=== PATIENT | male | born 1965 | race Caucasian/White ===

== ENCOUNTER 2019-05-17 17:17 | Outpatient (REF) | payer SELFPAY ==
[2019-05-17 22:26] LABS: COMMENT (LAB VIEW ONLY) 101.52 mg/dL; Microalb ug/mg Crea 3.3 ug/mg Cr
== END 2019-05-17 17:37 ==
LOC: NCHCN 17:17
PROVIDERS: PCP Internal Medicine; Visit Provider Internal Medicine
DX: E11.9 Type 2 diabetes mellitus without complications (principal)
CPT/HCPCS: 82043; 82570

== ENCOUNTER 2019-05-24 12:01 | Outpatient (REF) | payer SELFPAY ==
[2019-05-24 22:02] LABS: Calculated LDL 148 mg/dL; Cholesterol 204 mg/dL (<200); HDL Cholesterol 39 mg/dL (40-60); Triglyceride 88 mg/dL (<150)
== END 2019-05-24 12:21 ==
LOC: NCHCN 12:01
PROVIDERS: PCP Internal Medicine; Visit Provider Internal Medicine
DX: Z13.6 Encounter for screening for cardiovascular disorders (principal)
CPT/HCPCS: 80061

== ENCOUNTER 2019-09-06 11:52 | Outpatient (REF) | payer OTHER, SELFPAY ==
[2019-09-06 21:14] LABS: Calculated LDL 111 mg/dL (<100); Cholesterol 175 mg/dL (<200); HDL Cholesterol 48 mg/dL (40-60); Triglyceride 81 mg/dL (<150)
[2019-09-06 21:28] LABS: Hemoglobin A1C 6.5 % (3.8-5.6)
== END 2019-09-06 12:12 ==
LOC: NCHCN 11:52
PROVIDERS: PCP Internal Medicine; Visit Provider Internal Medicine
DX: E78.5 Hyperlipidemia, unspecified (principal); E11.9 Type 2 diabetes mellitus without complications
CPT/HCPCS: 80061; 83036

== ENCOUNTER 2019-12-17 12:42 | Outpatient (REF) | payer OTHER, SELFPAY ==
[2019-12-17 20:34] LABS: Bilirubin Negative (Negative); Blood Negative (Negative); Clarity Clear (Clear); Glucose Negative (Negative); Ketones Negative (Negative); Leukocyte Esterase Negative (Negative); Nitrite Negative (Negative); Specific Gravity 1.025 (1.005-1.025); Urobilinogen 0.2 EU/dL (Up TO 0.2); pH 5.5 (5-8)
[2019-12-17 20:59] LABS: TSH 1.51 uIU/mL (0.36-3.74)
[2019-12-20 10:04] LABS: PSA, Screening 0.9 ng/mL (0.0-3.5)
== END 2019-12-17 13:02 ==
LOC: NCHCN 12:42
PROVIDERS: PCP Internal Medicine; Visit Provider Internal Medicine
DX: R53.83 Other fatigue (principal); R35.0 Frequency of micturition; Z80.42 Family history of malignant neoplasm of prostate; Z12.5 Encounter for screening for malignant neoplasm of prostate
CPT/HCPCS: 84153; 81003; 84443

== ENCOUNTER 2021-02-28 22:05 | Outpatient (REF) | payer OTHER, SELFPAY ==
[2021-02-28 21:53] LABS: COMMENT (LAB VIEW ONLY) 204.58 mg/dL; Microalb ug/mg Crea 4.8 ug/mg Cr
[2021-02-28 21:58] LABS: BUN 19 mg/dL (7-18); CREATININE 1.1 mg/dL (0.70-1.30); Calcium 9.2 mg/dL (8.5-10.1); Calculated LDL 73 mg/dL (<100); Chloride 107 mmol/L (98-107); Cholesterol 138 mg/dL (<200); Glucose 93 mg/dL (74-106); HDL Cholesterol 51 mg/dL (40-60); Sodium 144 mmol/L (136-145); Triglyceride 71 mg/dL (<150)
[2021-02-28 22:05] LABS: Hemoglobin A1C 6.4 % (<5.7)
== END 2021-02-28 22:06 | disposition home or self-care (01) ==
LOC: NCHCN 22:05
PROVIDERS: PCP Internal Medicine; Visit Provider Internal Medicine
DX: E11.9 Type 2 diabetes mellitus without complications (principal); E78.5 Hyperlipidemia, unspecified
CPT/HCPCS: 80048; 80061; 82043; 82570; 83036

== ENCOUNTER 2021-12-26 16:21 | Outpatient (REF) | payer OTHER, SELFPAY ==
[2021-12-26 17:18] LABS: Anion Gap 10.5 mmol/L (3-11); BUN 17 mg/dL (7-18); CO2 28.5 mmol/L (21.0-32.0); Calcium 8.8 mg/dL (8.5-10.1); Calculated LDL 79 mg/dL (<100); Chloride 103 mmol/L (98-107); Cholesterol 150 mg/dL (<200); Glucose 168 mg/dL (74-106); HDL Cholesterol 44 mg/dL (40-60); Potassium 4.2 mmol/L (3.5-5.1); Sodium 142 mmol/L (136-145); Triglyceride 137 mg/dL (<150)
== END 2021-12-26 16:22 | disposition home or self-care (01) ==
LOC: NCHCN 16:21
PROVIDERS: PCP Internal Medicine; Visit Provider Internal Medicine
DX: I10 Essential (primary) hypertension (principal); E78.5 Hyperlipidemia, unspecified; E11.9 Type 2 diabetes mellitus without complications; E66.9 Obesity, unspecified
CPT/HCPCS: 80048; 80061; 83036

== ENCOUNTER 2022-01-02 16:59 | Outpatient (REF) | payer OTHER, SELFPAY ==
[2022-01-03 17:55] LABS: Albumin ug/mg Crea 9 (<30); Albumin, Ur 0.8 mg/dL (See Note); Creatinine, Ur 88.8 mg/dL (See Note)
== END 2022-01-02 17:00 | disposition home or self-care (01) ==
LOC: NCHCN 16:59
PROVIDERS: PCP Internal Medicine; Visit Provider Nurse Practitioner Family
DX: E11.9 Type 2 diabetes mellitus without complications (principal)
CPT/HCPCS: 82043; 82570

== ENCOUNTER 2023-01-29 11:26 | Outpatient (REF) | payer OTHER, SELFPAY ==
[2023-01-29 16:15] LABS: ALT 42 U/L (16-63); AST 28 U/L (15-37); Albumin 4.6 g/dL (3.4-5.0); Alkaline Phosphatase 73 U/L (46-116); Anion Gap 11.1 mmol/L (3-11); BUN 15 mg/dL (7-18); Bilirubin, Total 0.9 mg/dL (0.2-1.0); CO2 24.9 mmol/L (21.0-32.0); Calcium 9.7 mg/dL (8.5-10.1); Calculated LDL 103 mg/dL (<100); Chloride 104 mmol/L (98-107); Cholesterol 175 mg/dL (<200); Estimated GFR 87.78 (mL/min/1.73m2); Glucose 168 mg/dL (74-106); HDL Cholesterol 49 mg/dL (40-60); Potassium 4.5 mmol/L (3.5-5.1); Sodium 140 mmol/L (136-145); Total Protein 7.6 g/dL (6.4-8.2); Triglyceride 118 mg/dL (<150)
[2023-01-29 16:20] LABS: Hemoglobin A1C 6.7 % (<5.7)
== END 2023-01-29 11:27 | disposition home or self-care (01) ==
LOC: NCHCN 11:26
PROVIDERS: PCP Internal Medicine; Visit Provider Nurse Practitioner Family
DX: E11.9 Type 2 diabetes mellitus without complications (principal); E78.5 Hyperlipidemia, unspecified; E66.9 Obesity, unspecified
CPT/HCPCS: 80053; 80061; 83036

== ENCOUNTER 2023-05-15 19:18 | Outpatient (REF) | payer OTHER, SELFPAY ==
[2023-05-15 22:16] LABS: COMMENT (LAB VIEW ONLY) 91.22 mg/dL; Microalb ug/mg Crea 5.7 ug/mg Cr
== END 2023-05-15 19:19 | disposition home or self-care (01) ==
LOC: NCHCN 19:18
PROVIDERS: PCP Internal Medicine; Visit Provider Internal Medicine
DX: E11.9 Type 2 diabetes mellitus without complications (principal)
CPT/HCPCS: 82043; 82570

== ENCOUNTER 2023-08-05 08:29 | Outpatient (REF) | payer OTHER, SELFPAY ==
[2023-08-05 15:09] LABS: ALT 30 U/L (16-63); AST 17 U/L (15-37); Albumin 4.3 g/dL (3.4-5.0); Alkaline Phosphatase 68 U/L (46-116); Anion Gap 11.9 mmol/L (3-11); BUN 18 mg/dL (7-18); Bilirubin, Total 1.2 mg/dL (0.2-1.0); CO2 25.1 mmol/L (21.0-32.0); CREATININE 0.9 mg/dL (0.70-1.30); Calcium 9.1 mg/dL (8.5-10.1); Calculated LDL 79 mg/dL (<100); Chloride 107 mmol/L (98-107); Cholesterol 146 mg/dL (<200); Estimated GFR 99.62 (mL/min/1.73m2); Glucose 132 mg/dL (74-106); HDL Cholesterol 44 mg/dL (40-60); Potassium 4.3 mmol/L (3.5-5.1); Sodium 144 mmol/L (136-145); Total Protein 7.1 g/dL (6.4-8.2); Triglyceride 117 mg/dL (<150)
[2023-08-05 15:31] LABS: Hemoglobin A1C 6.6 % (<5.7)
== END 2023-08-05 08:30 | disposition home or self-care (01) ==
LOC: NCHCN 08:29
PROVIDERS: PCP Internal Medicine; Visit Provider Nurse Practitioner Family
DX: E78.5 Hyperlipidemia, unspecified (principal); E11.9 Type 2 diabetes mellitus without complications
CPT/HCPCS: 80053; 80061; 83036

== ENCOUNTER 2024-03-03 19:53 | Outpatient (REF) | payer OTHER, SELFPAY ==
[2024-03-03 21:21] LABS: COMMENT (LAB VIEW ONLY) 72.98 mg/dL; Microalb ug/mg Crea 27.5 ug/mg Cr
== END 2024-03-03 19:54 | disposition home or self-care (01) ==
LOC: NCHCN 19:53
PROVIDERS: PCP Internal Medicine; Visit Provider Nurse Practitioner Family
DX: E11.9 Type 2 diabetes mellitus without complications (principal)
CPT/HCPCS: 82043; 82570

== ENCOUNTER 2024-09-01 09:09 | Outpatient (REF) | payer OTHER, SELFPAY ==
[2024-09-01 14:48] LABS: Hemoglobin A1C 6.5 % (<5.7)
[2024-09-01 15:05] LABS: ALT 38 U/L (16-63); AST 19 U/L (15-37); Albumin 4.6 g/dL (3.4-5.0); Alkaline Phosphatase 83 U/L (46-116); Anion Gap 8.5 mmol/L (3-11); BUN 21 mg/dL (7-18); Bilirubin, Total 1.1 mg/dL (0.2-1.0); CO2 28.5 mmol/L (21.0-32.0); Calcium 9.1 mg/dL (8.5-10.1); Calculated LDL 86 mg/dL (<100); Chloride 107 mmol/L (98-107); Cholesterol 164 mg/dL (<200); Estimated GFR 87.24 (mL/min/1.73m2); Glucose 178 mg/dL (74-106); HDL Cholesterol 47 mg/dL (>or=40); Potassium 4.6 mmol/L (3.5-5.1); Sodium 144 mmol/L (136-145); Total Protein 7.5 g/dL (6.4-8.2); Triglyceride 157 mg/dL (<150)
== END 2024-09-01 09:10 | disposition home or self-care (01) ==
LOC: NCHCN 09:09
PROVIDERS: PCP Internal Medicine; Visit Provider Nurse Practitioner Family
DX: E78.5 Hyperlipidemia, unspecified (principal); E11.9 Type 2 diabetes mellitus without complications
CPT/HCPCS: 80053; 80061; 83036

== ENCOUNTER 2025-01-04 16:41 | Outpatient (REF) | payer OTHER, SELFPAY ==
[2025-01-04 22:05] LABS: COMMENT (LAB VIEW ONLY) 158.85 mg/dL; Microalb ug/mg Crea 6.0 ug/mg Cr
== END 2025-01-04 16:42 | disposition home or self-care (01) ==
LOC: NCHCN 16:41
PROVIDERS: PCP Internal Medicine; Visit Provider Nurse Practitioner Family
DX: E11.9 Type 2 diabetes mellitus without complications (principal)
CPT/HCPCS: 82043; 82570